=== PATIENT | male | born 1985 | race African-American/Black ===

== ENCOUNTER 2020-12-08 15:29 | Observation (INO) | payer MEDICAID ==
[~2020-12-08] VITALS: Ht 188 cm; Wt 86.3 kg
[2020-12-08] MEDS ORDERED: METOCLOPRAMIDE HCL 10 MG/2 ML VIAL. IVP ONE (16:45)
[2020-12-08] MEDS ORDERED: IV NORMAL SALINE 1000ML BAG 1,000 ML IV ONE ×2 (16:45→20:15)
[2020-12-08 17:17] LABS: BASO # 0.1 x10^3/uL (0.0-0.2); BASO % 1 % (0-3); EOS % 0 % (0-3); HEMATOCRIT 42.6 % (39.0-53.0); HEMOGLOBIN 15.1 g/dL (13.0-17.5); LYMPH # 1.7 x10^3/uL (1.0-4.8); LYMPH % 14 % (24-48); MEAN CORPUSCULAR HEMOGLOBIN 29 pg (25-35); MEAN CORPUSCULAR HGB CONC 35 g/dL (31-37); MEAN CORPUSCULAR VOLUME 82 fL (79-100); MONO # 0.7 x10^3/uL (0.0-1.1); MONO % 6 % (0-9); NEUT # 9.7 x10^3/uL (1.8-7.7); NEUT % 80 % (31-73); PLATELET COUNT 376 x10^3/uL (140-400); RED BLOOD COUNT 5.18 x10^6/uL (4.30-5.70); RED CELL DISTRIBUTION WIDTH 13.3 % (11.5-14.5); WHITE BLOOD COUNT 12.1 x10^3/uL (4.0-11.0)
--- NOTE | 2020-12-08 17:49 | PHYS DOC ---
Past Medical History Past Medical History: Diabetes-Type II (MARZENA GIPSON MANAGER CARDIOLOGY) General Adult EDM: Chief Complaint: BLOOD SUGAR PROBLEM HPI: HPI: Patient is a 35 year old male with history of diabetes type 2, who presents today complaining of hyperglycemia with nausea vomiting and weakness. Patient is very rude and not giving us any information. At some point he was yelling at the RN and I as we asked him questions related to his visit today. He has an armband from . He states he was admitted there a couple days ago and discharged after 2 days for hyperglycemia and states [facility] did nothing for him. At some point we almost called security in his room because he was yelling out loud. (MARZENA GIPSON MANAGER CARDIOLOGY) Review of Systems: Review of Systems: Constitutional: Generalized weakness. Denies fever or chills. [] Eyes: Denies change in visual acuity. [] HENT: Denies nasal congestion or sore throat. [] Respiratory: Denies cough or shortness of breath. [] Cardiovascular: Denies chest pain or edema. [] GI: Nausea and vomiting. Denies abdominal pain, nausea, vomiting, bloody stools or diarrhea. [] : Denies dysuria. [] Musculoskeletal: Denies back pain or joint pain. [] Integument: Denies rash. [] Neurologic: Denies headache, focal weakness or sensory changes. [] Endocrine: Reports hyperglycemia Psychiatric: Denies depression or anxiety. [] (MARZENA GIPSON MANAGER CARDIOLOGY) Heart Score: C/O Chest Pain: N/A Risk Factors: Risk Factors: DM, Current or recent (<one month) smoker, HTN, HLP, family history of CAD, obesity. Risk Scores: Score 0 - 3: 2.5% MACE over next 6 weeks - Discharge Home Score 4 - 6: 20.3% MACE over next 6 weeks - Admit for Clinical Observation Score 7 - 10: 72.7% MACE over next 6 weeks - Early Invasive Strategies (MARZENA GIPSON MANAGER CARDIOLOGY) Current Medications: Current Medications Medications (Trade) Dose Ordered Sig/Leslie Start Time Stop Time Status Last Admin Dose Admin Metoclopramide HCl (Reglan Vial) 10 mg 1X ONCE 12/08/20 16:45 12/08/20 16:46 UNV Sodium Chloride 1,000 ml @ 1,000 mls/hr 1X ONCE 12/08/20 16:45 12/08/20 17:44 UNV (MARZENA GIPSON MANAGER CARDIOLOGY) Physical Exam: PE: Constitutional: Well developed, well nourished, no acute distress, lethargic appearing HENT: Normocephalic, atraumatic, bilateral external ears normal, oropharynx moist, no oral exudates, nose normal. [] Eyes: PERRLA, EOMI, conjunctiva normal, no discharge. [] Neck: Normal range of motion, no tenderness, supple, no stridor. [] Cardiovascular:Heart rate regular rhythm Lungs & Thorax: Bilateral breath sounds clear to auscultation [] Abdomen: Bowel sounds normal, soft, no tenderness, no masses, no pulsatile masses. [] Skin: Warm, dry, no erythema, no rash. [] Back: No tenderness, no CVA tenderness. [] Extremities: No tenderness, no cyanosis, no clubbing, ROM intact, no edema. [] Neurologic: Alert and oriented X 3, normal motor function, normal sensory function, no focal deficits noted. Uncooperative for cranial nerve check Psychologic: Flat affect, depressed mood (MARZENA GIPSON MANAGER CARDIOLOGY) Current Patient Data: Labs: Laboratory Tests Test 12/08/20 16:42 12/08/20 17:05 Glucose (Fingerstick) 302 mg/dL (70-99) H White Blood Count 12.1 x10^3/uL (4.0-11.0) H Red Blood Count 5.18 x10^6/uL (4.30-5.70) Hemoglobin 15.1 g/dL (13.0-17.5) Hematocrit 42.6 % (39.0-53.0) Mean Corpuscular Volume 82 fL (79-100) Mean Corpuscular Hemoglobin 29 pg (25-35) Mean Corpuscular Hemoglobin Concent 35 g/dL (31-37) Red Cell Distribution Width 13.3 % (11.5-14.5) Platelet Count 376 x10^3/uL (140-400) Neutrophils (%) (Auto) 80 % (31-73) H Lymphocytes (%) (Auto) 14 % (24-48) L Monocytes (%) (Auto) 6 % (0-9) Eosinophils (%) (Auto) 0 % (0-3) Basophils (%) (Auto) 1 % (0-3) Neutrophils # (Auto) 9.7 x10^3/uL (1.8-7.7) H Lymphocytes # (Auto) 1.7 x10^3/uL (1.0-4.8) Monocytes # (Auto) 0.7 x10^3/uL (0.0-1.1) Eosinophils # (Auto) 0.0 x10^3/uL (0.0-0.7) Basophils # (Auto) 0.1 x10^3/uL (0.0-0.2) Laboratory Tests 12/08/20 17:05 (MARZENA GIPSON APRN) Vital Signs: Vital Signs Date Time Temp Pulse Resp B/P (MAP) Pulse Ox O2 Delivery O2 Flow Rate FiO2 12/08/20 20:28 106 29 118/80 (93) 99 Room Air 12/08/20 19:58 104 18 131/85 (100) 98 Room Air 12/08/20 18:58 110 28 134/80 (98) 98 Room Air 12/08/20 18:28 101 15 133/89 (104) 97 Room Air 12/08/20 17:58 104 18 129/80 (96) 95 Room Air 12/08/20 17:56 103 17 131/84 (100) 97 Room Air 12/08/20 17:07 104 19 127/89 (102) 96 Room Air 12/08/20 16:28 109 24 132/84 (100) 97 Room Air 12/08/20 16:20 98.2 109 24 132/84 95 Room Air 98.2 (AVERY LUCAS DO) EKG: EKG: [] (MARZENA GIPSON APRN) Radiology/Procedures: Radiology/Procedures: [] (MARZENA GIPSON APRN) Course & Med Decision Making: Course & Med Decision Making Pertinent Labs and Imaging studies reviewed. (See chart for details) This is a 35-year-old male patient with history of diabetes type 2 presenting today complaining of hyperglycemia, nausea, vomiting, generalized weakness, see HPI CBC with a WBC of 12.1, hemoglobin and hematocrit are normal. CMP with glucose of 246, anion gap is 9. Creatinine 1.6, BUN 42 patient denies any history of kidney disease. IV fluids ordered, insulin ordered. Spoke to Dr. Gupta who accepted patient for admission (MARZENA GIPSON APRN) Course & Med Decision Making I have personally examined this patient and I have reviewed and agree with all pertinent clinical information above including history, exam, and recommendations. I agree with plan for admission. Patient was very difficult IV access, I supervised external jugular vein cannulation by RN. Plan for admission with further IV access to be determined by the inpatient team. Avery Lucas DO (AVERY LUCAS DO) Megan Disclaimer: Megan Disclaimer: This electronic medical record was generated, in whole or in part, using a voice recognition dictation system. (MARZENA GIPSON APRN) Departure Departure Impression: Primary Impression: Acute kidney injury Additional Impressions: Dehydration Hyperglycemia Disposition: ADMITTED INPATIENT Condition: STABLE Referrals: UNKNOWN PCP NAME (PCP) MARZENA GIPSON APRN Dec 08, 2020 17:48 AVERY LUCAS DO Dec 08, 2020 21:03
[2020-12-08 18:05] LABS: CREATININE 1.6 mg/dL (0.7-1.3); GFR 59.1; POTASSIUM 3.4 mmol/L (3.5-5.1)
[2020-12-08 18:10] LABS: ALBUMIN 3.7 g/dL (3.4-5.0); ALBUMIN/GLOBULIN RATIO 0.8 (1.0-1.7); TOTAL BILIRUBIN 0.6 mg/dL (0.2-1.0); TOTAL PROTEIN 8.2 g/dL (6.4-8.2)
--- NOTE | 2020-12-08 20:05 | PDOC1 ---
History and Physical Date of Admission Date of Admission DATE: 12/08/20 TIME: 20:02 Identification/Chief Complaint Chief Complaint Hyperglycemia Source Source: Chart review, Patient History of Present Illness History of Present Illness Patient is a 35-year-old male with past medical history DM2 who presents with concern of nausea, vomiting, and elevated blood sugar over the past 2 days. Patient is very uncooperative at the time of my evaluation, is much history is obtained from chart review. He was reportedly admitted to for similar concern recently, and just discharged 2 days ago. He did report to one staff m ember that " did not do anything for me". Labs on admission showed WBC 12.7, sodium 133, BUN 42, creatinine 1.6, CBG 246, alk phos 158. At one point security was almost contacted due to patient's aggression. In the ED he received Reglan and 1 L normal saline. Will admit patient for further medical management. Past Medical History Past Medical History DM2 Past Surgical History Past Surgical History Tracheostomy, abdominal surgery Family History Family History DM2 Social History Smoke: No ALCOHOL: none Drugs: None Current Medications Current Medications Current Medications Sodium Chloride 1,000 ml @ 1,000 mls/hr 1X ONCE IV ; Start 12/08/20 at 16:45; Stop 12/08/20 at 19:35; Status DC Metoclopramide HCl (Reglan Vial) 10 mg 1X ONCE IVP ; Start 12/08/20 at 16:45; Stop 12/08/20 at 19:35; Status DC Allergies Allergies: Coded Allergies: No Known Drug Allergies (Unverified , 12/08/20) ROS Review of System He admits to abdominal pain by pointing to his stomach. Further review of history reviewed with patient but unable to obtain due to patient noncompliance. Physical Exam Physical Exam General: Alert, uncooperative, no acute distress HEENT: PERRLA, EOMI Lungs: Clear to auscultation, Normal air movement Heart: RRR, no murmurs Cardiovascular: S1, S2 Abdomen: Normal bowel sounds, Soft, No tenderness Extremities: No clubbing, No cyanosis Skin: Multiple superficial abrasions to right lower extremity. No rashes, No significant lesion Neuro: Normal tone, Sensation intact Psych/Mental Status: Blunted affect Vitals Vitals Vital Signs Date Time Temp Pulse Resp B/P (MAP) Pulse Ox O2 Delivery O2 Flow Rate FiO2 8/7/21 18:58 110 28 134/80 (98) 98 Room Air 12/08/20 16:20 98.2 98.2 Labs Labs Laboratory Tests Test 12/08/20 16:42 12/08/20 17:05 12/08/20 17:35 Glucose (Fingerstick) 302 mg/dL (70-99) White Blood Count 12.1 x10^3/uL (4.0-11.0) Red Blood Count 5.18 x10^6/uL (4.30-5.70) Hemoglobin 15.1 g/dL (13.0-17.5) Hematocrit 42.6 % (39.0-53.0) Mean Corpuscular Volume 82 fL (79-100) Mean Corpuscular Hemoglobin 29 pg (25-35) Mean Corpuscular Hemoglobin Concent 35 g/dL (31-37) Red Cell Distribution Width 13.3 % (11.5-14.5) Platelet Count 376 x10^3/uL (140-400) Neutrophils (%) (Auto) 80 % (31-73) Lymphocytes (%) (Auto) 14 % (24-48) Monocytes (%) (Auto) 6 % (0-9) Eosinophils (%) (Auto) 0 % (0-3) Basophils (%) (Auto) 1 % (0-3) Neutrophils # (Auto) 9.7 x10^3/uL (1.8-7.7) Lymphocytes # (Auto) 1.7 x10^3/uL (1.0-4.8) Monocytes # (Auto) 0.7 x10^3/uL (0.0-1.1) Eosinophils # (Auto) 0.0 x10^3/uL (0.0-0.7) Basophils # (Auto) 0.1 x10^3/uL (0.0-0.2) Sodium Level 133 mmol/L (136-145) Potassium Level 3.4 mmol/L (3.5-5.1) Chloride Level 90 mmol/L (98-107) Carbon Dioxide Level 34 mmol/L (21-32) Anion Gap 9 (6-14) Blood Urea Nitrogen 42 mg/dL (8-26) Creatinine 1.6 mg/dL (0.7-1.3) Estimated GFR (Cockcroft-Gault) 59.1 BUN/Creatinine Ratio 26 (6-20) Glucose Level 246 mg/dL (70-99) Calcium Level 10.0 mg/dL (8.5-10.1) Total Bilirubin 0.6 mg/dL (0.2-1.0) Aspartate Amino Transf (AST/SGOT) 23 U/L (15-37) Alanine Aminotransferase (ALT/SGPT) 54 U/L (16-63) Alkaline Phosphatase 158 U/L (46-116) Total Protein 8.2 g/dL (6.4-8.2) Albumin 3.7 g/dL (3.4-5.0) Albumin/Globulin Ratio 0.8 (1.0-1.7) Laboratory Tests Test 12/08/20 16:42 12/08/20 17:05 12/08/20 17:35 Glucose (Fingerstick) 302 mg/dL (70-99) White Blood Count 12.1 x10^3/uL (4.0-11.0) Red Blood Count 5.18 x10^6/uL (4.30-5.70) Hemoglobin 15.1 g/dL (13.0-17.5) Hematocrit 42.6 % (39.0-53.0) Mean Corpuscular Volume 82 fL (79-100) Mean Corpuscular Hemoglobin 29 pg (25-35) Mean Corpuscular Hemoglobin Concent 35 g/dL (31-37) Red Cell Distribution Width 13.3 % (11.5-14.5) Platelet Count 376 x10^3/uL (140-400) Neutrophils (%) (Auto) 80 % (31-73) Lymphocytes (%) (Auto) 14 % (24-48) Monocytes (%) (Auto) 6 % (0-9) Eosinophils (%) (Auto) 0 % (0-3) Basophils (%) (Auto) 1 % (0-3) Neutrophils # (Auto) 9.7 x10^3/uL (1.8-7.7) Lymphocytes # (Auto) 1.7 x10^3/uL (1.0-4.8) Monocytes # (Auto) 0.7 x10^3/uL (0.0-1.1) Eosinophils # (Auto) 0.0 x10^3/uL (0.0-0.7) Basophils # (Auto) 0.1 x10^3/uL (0.0-0.2) Sodium Level 133 mmol/L (136-145) Potassium Level 3.4 mmol/L (3.5-5.1) Chloride Level 90 mmol/L (98-107) Carbon Dioxide Level 34 mmol/L (21-32) Anion Gap 9 (6-14) Blood Urea Nitrogen 42 mg/dL (8-26) Creatinine 1.6 mg/dL (0.7-1.3) Estimated GFR (Cockcroft-Gault) 59.1 BUN/Creatinine Ratio 26 (6-20) Glucose Level 246 mg/dL (70-99) Calcium Level 10.0 mg/dL (8.5-10.1) Total Bilirubin 0.6 mg/dL (0.2-1.0) Aspartate Amino Transf (AST/SGOT) 23 U/L (15-37) Alanine Aminotransferase (ALT/SGPT) 54 U/L (16-63) Alkaline Phosphatase 158 U/L (46-116) Total Protein 8.2 g/dL (6.4-8.2) Albumin 3.7 g/dL (3.4-5.0) Albumin/Globulin Ratio 0.8 (1.0-1.7) VTE Prophylaxis Ordered VTE Prophylaxis Devices: Yes VTE Pharmacological Prophylaxi: No Assessment/Plan Assessment/Plan LUISA due to vasomotor nephropathy Dehydration DM2 with hyperglycemia Leukocytosis Plan: I will admit patient and provide IV fluids Basal/prandial insulin We will resume home medications I imagine patient will be able to discharge tomorrow if labs improved significantly FEN - Cardiac diet PPX - SCDs FULL CODE Dispo - OBS for above Justifications for Admission Other Justification ROCKY MEHTA MD Dec 08, 2020 20:04
[2020-12-08] MEDS ORDERED: ACETAMINOPHEN 325 MG TABLET. PO PRN ×2 (20:15→20:30)
[2020-12-08] MEDS ORDERED: DEXTROSE 50% 25 GM / 50ML DISP.SYRIN. IV PRN ×2 (20:15→20:30)
[2020-12-08] MEDS ORDERED: ONDANSETRON PF 4 MG/2 ML VIAL. IVP PRN ×2 (20:15→20:30)
[2020-12-08] MEDS ORDERED: MORPHINE SULFATE 2 MG/ML INJ. IVP PRN (20:15)
[2020-12-08] MEDS ORDERED: HYDROcodone/APAP 5/325MG 1 TAB TABLET PO PRN (20:30)
[2020-12-08] MEDS ORDERED: IV DEXTROSE 5% 250 ML BAG. IV PRN ×2 (20:30→23:30)
[2020-12-08] MEDS ORDERED: PROCHLORPERAZINE 10 MG/2 ML VIAL. IVP PRN (20:30)
[2020-12-08] MEDS ORDERED: MAGNESIUM HYDROXIDE 2,400 MG/30 ML ORAL.SUSP. PO PRN (20:30)
[2020-12-08] MEDS ORDERED: MAG HYDROX/ALUMINUM HYD/SIMETH 30 ML ORAL.SUSP PO PRN (20:30)
[2020-12-08] MEDS ORDERED: ZOLPIDEM 5 MG TABLET. PO PRN (20:30)
[2020-12-08] MEDS ORDERED: IV NORMAL SALINE 1000ML BAG 1,000 ML IV PRN (20:30)
[2020-12-08] MEDS ORDERED: CALCIUM CARBONATE 500 MG TAB.CHEW PO PRN (20:30)
[2020-12-08] MEDS ORDERED: FAMOTIDINE 20 MG TABLET. PO PRN (20:45)
[2020-12-08] MEDS ORDERED: METOCLOPRAMIDE HCL 10 MG/2 ML VIAL. IVP PRN (20:45)
[2020-12-08] MEDS ORDERED: LIDO:MAALOX 1:1 20 ML SINGLE DOSE. SWSW PRN (20:45)
[2020-12-08] MEDS ORDERED: MORPHINE SULFATE 4 MG/ML INJ. IVP PRN (20:45)
[2020-12-08] MEDS ORDERED: PANTOPRAZOLE 40 MG TABLET.DR. PO PRN (20:45)
[2020-12-08] MEDS ORDERED: INSULIN GLARGINE SYRINGE. SQ SCH (21:00)
[2020-12-08 21:20] VITALS: BP 117/95
--- NOTE | 2020-12-08 22:37 | NUR ---
patient admitted from ED ,arrived to room 412 at 2125. patient will answer to questions appropriately. Denies pain , He stated he took lantus 30 units at 2pm , ,His blood sugar upon arrival per Cap[facility] was 112. Refused lantus 20 units order at ED. Noticed his body jerking on and off while talking to this RN, he said he is not having seizure activity. No muscle stiffness noted while his whole body is jerking. VS taken and WNL. Dr Gupta Notified about this body jerking activities .
[2020-12-08 23:00] VITALS: BP 91/54
[2020-12-09 02:43] VITALS: BP 117/95
[2020-12-09 04:06] LABS: BILIRUBIN,URINE SMALL (NEG); CLARITY,URINE CLEAR; COLOR,URINE AMBER; NITRITE,URINE NEGATIVE (NEG); PH,URINE 5.5 (<5.0-8.0); PROTEIN,URINE 100 mg/dL (NEG-TRACE); UROBILINOGEN,URINE 0.2 mg/dL (0.2 mg/dL)
[2020-12-09 04:12] LABS: BARBITURATES NEG (NEG); BENZODIAZEPINES NEG (NEG); CANNABINOIDS NEG (NEG); COCAINE NEG (NEG); METHADONE NEG (NEG); OPIATES NEG (NEG); PHENCYCLIDINE NEG (NEG)
[2020-12-09 04:21] LABS: AMPHETAMINE/METHAMPHETAMINE NEG (NEG)
[2020-12-09 04:42] LABS: BACTERIA,URINE FEW /HPF (0-FEW); RBC,URINE 0 /HPF (0-2)
[2020-12-09 04:43] LABS: HYALINE CASTS, URINE FEW /HPF
[2020-12-09 07:00] VITALS: BP 137/92
[2020-12-09] MEDS: INSULIN LISPRO 300 UNITS/3 ML VIAL. SQ SCH ×3 (08:00→18:12)
[2020-12-09] MEDS ORDERED: INSULIN LISPRO 300 UNITS/3 ML VIAL. SQ SCH (08:00)
[2020-12-09 08:04] LABS: BASO % 0 % (0-3); EOS # 0.1 x10^3/uL (0.0-0.7); EOS % 1 % (0-3); HEMATOCRIT 36.5 % (39.0-53.0); LYMPH # 2.3 x10^3/uL (1.0-4.8); LYMPH % 24 % (24-48); MEAN CORPUSCULAR HEMOGLOBIN 30 pg (25-35); MEAN CORPUSCULAR HGB CONC 36 g/dL (31-37); MEAN CORPUSCULAR VOLUME 83 fL (79-100); MONO # 0.6 x10^3/uL (0.0-1.1); MONO % 6 % (0-9); NEUT # 6.6 x10^3/uL (1.8-7.7); NEUT % 68 % (31-73); PLATELET COUNT 305 x10^3/uL (140-400); RED BLOOD COUNT 4.38 x10^6/uL (4.30-5.70); RED CELL DISTRIBUTION WIDTH 13.1 % (11.5-14.5); WHITE BLOOD COUNT 9.6 x10^3/uL (4.0-11.0)
[2020-12-09 08:11] LABS: CALCIUM 8.8 mg/dL (8.5-10.1); CREATININE 1.2 mg/dL (0.7-1.3); GFR 82.4; POTASSIUM 3.3 mmol/L (3.5-5.1)
[2020-12-09] MEDS ORDERED: PANTOPRAZOLE IV PUSH 40 MG VIAL. IVP SCH (09:00)
--- NOTE | 2020-12-09 10:53 | PDOC ---
PROGRESS NOTES Date of Service: DATE: 12/09/20 TIME: 10:53 Chief Complaint Chief Complaint VTE Prophylaxis Ordered VTE Prophylaxis Devices: Yes VTE Pharmacological Prophylaxi: No Assessment/Plan LUISA due to vasomotor nephropathy Dehydration DM2 with hyperglycemia Leukocytosis HYPOKALEMIA METABOLIC contraction alkalosis Vomiting Plan: admit patient and provide IV fluids Basal/prandial insulin resume home medications discharge tomorrow if labs improved significantly FEN - Cardiac diet PPX - SCDs FULL CODE Dispo - OBS for above REPLETE K continue iv reglan 1/2 NS AT 125 CC / HR remain in hospital for IV FLUID SUPPORT ACUTE ABD SERIES LIPASE D/W RN Justifications for Admission Justifications for Admission Other Justification History of Present Illness History of Present Illness Identification/Chief Complaint Chief Complaint Hyperglycemia Source Source: Chart review, Patient History of Present Illness History of Present Illness Patient is a 35-year-old male with past medical history DM2 who presents with concern of nausea, vomiting, and elevated blood sugar over the past 2 days. Patient is very uncooperative at the time of my evaluation, is much history is obtained from chart review. He was reportedly admitted to for similar concern recently, and just discharged 2 days ago. He did report to one staff member that " did not do anything for me". Labs on admission showed WBC 12.7, sodium 133, BUN 42, creatinine 1.6, CBG 246, alk phos 158. At one point security was almost contacted due to patient's aggression. In the ED he received Reglan and 1 L normal saline. Will admit patient for further medical management. Past Medical History Past Medical History DM2 Past Surgical History Past Surgical History Tracheostomy, abdominal surgery Family History Family History DM2 Social History Smoke: No ALCOHOL: none Drugs: None Current Medications Current Medications Current Medications Sodium Chloride 1,000 ml @ 1,000 mls/hr 1X ONCE IV ; Start 12/08/20 at 16:45; Stop 12/08/20 at 19:35; Status DC Metoclopramide HCl (Reglan Vial) 10 mg 1X ONCE IVP ; Start 12/08/20 at 16:45; Stop 12/08/20 at 19:35; Status DC Allergies Allergies: Coded Allergies: No Known Drug Allergies (Unverified , 12/08/20) ROS Review of System He admits to abdominal pain by pointing to his stomach. Further review of history reviewed with patient but unable to obtain due to patient noncompliance. Vitals Vitals Vital Signs Date Time Temp Pulse Resp B/P (MAP) Pulse Ox O2 Delivery O2 Flow Rate FiO2 12/09/20 07:00 97.7 97 18 137/92 (107) 96 Room Air 97.7 Physical Exam Physical Exam Physical Exam Physical Exam General: Alert, uncooperative, no acute distress HEENT: PERRLA, EOMI Lungs: Clear to auscultation, Normal air movement Heart: RRR, no murmurs Cardiovascular: S1, S2 Abdomen: Normal bowel sounds, Soft, No tenderness Extremities: No clubbing, No cyanosis Skin: Multiple superficial abrasions to right lower extremity. No rashes, No significant lesion Neuro: Normal tone, Sensation intact Psych/Mental Status: Blunted affect General: Alert, Oriented X3, Cooperative, No acute distress Heart: Regular rate Lungs: Clear Abdomen: Normal bowel sounds, Soft, No tenderness Extremities: No clubbing, No cyanosis, No edema Labs LABS Laboratory Tests Test 12/08/20 16:42 12/08/20 17:05 12/08/20 17:35 12/08/20 21:32 Glucose (Fingerstick) 302 mg/dL (70-99) 112 mg/dL (70-99) White Blood Count 12.1 x10^3/uL (4.0-11.0) Red Blood Count 5.18 x10^6/uL (4.30-5.70) Hemoglobin 15.1 g/dL (13.0-17.5) Hematocrit 42.6 % (39.0-53.0) Mean Corpuscular Volume 82 fL (79-100) Mean Corpuscular Hemoglobin 29 pg (25-35) Mean Corpuscular Hemoglobin Concent 35 g/dL (31-37) Red Cell Distribution Width 13.3 % (11.5-14.5) Platelet Count 376 x10^3/uL (140-400) Neutrophils (%) (Auto) 80 % (31-73) Lymphocytes (%) (Auto) 14 % (24-48) Monocytes (%) (Auto) 6 % (0-9) Eosinophils (%) (Auto) 0 % (0-3) Basophils (%) (Auto) 1 % (0-3) Neutrophils # (Auto) 9.7 x10^3/uL (1.8-7.7) Lymphocytes # (Auto) 1.7 x10^3/uL (1.0-4.8) Monocytes # (Auto) 0.7 x10^3/uL (0.0-1.1) Eosinophils # (Auto) 0.0 x10^3/uL (0.0-0.7) Basophils # (Auto) 0.1 x10^3/uL (0.0-0.2) Sodium Level 133 mmol/L (136-145) Potassium Level 3.4 mmol/L (3.5-5.1) Chloride Level 90 mmol/L (98-107) Carbon Dioxide Level 34 mmol/L (21-32) Anion Gap 9 (6-14) Blood Urea Nitrogen 42 mg/dL (8-26) Creatinine 1.6 mg/dL (0.7-1.3) Estimated GFR (Cockcroft-Gault) 59.1 BUN/Creatinine Ratio 26 (6-20) Glucose Level 246 mg/dL (70-99) Calcium Level 10.0 mg/dL (8.5-10.1) Total Bilirubin 0.6 mg/dL (0.2-1.0) Aspartate Amino Transf (AST/SGOT) 23 U/L (15-37) Alanine Aminotransferase (ALT/SGPT) 54 U/L (16-63) Alkaline Phosphatase 158 U/L (46-116) Total Protein 8.2 g/dL (6.4-8.2) Albumin 3.7 g/dL (3.4-5.0) Albumin/Globulin Ratio 0.8 (1.0-1.7) Test 12/09/20 03:50 12/09/20 07:10 12/09/20 07:22 Urine Collection Type Unknown Urine Color Diamond Urine Clarity Clear Urine pH 5.5 (<5.0-8.0) Urine Specific [place] >=1.030 (1.000-1.030) Urine Protein 100 mg/dL (NEG-TRACE) Urine Glucose (UA) 500 mg/dL (NEG) Urine Ketones (Stick) Trace mg/dL (NEG) Urine Blood Negative (NEG) Urine Nitrite Negative (NEG) Urine Bilirubin Small (NEG) Urine Urobilinogen Dipstick 0.2 mg/dL (0.2 mg/dL) Urine Leukocyte Esterase Trace (NEG) Urine RBC 0 /HPF (0-2) Urine WBC 1-4 /HPF (0-4) Urine Squamous Epithelial Cells Few /LPF Urine Bacteria Few /HPF (0-FEW) Urine Hyaline Casts Few /HPF Urine Mucus Mod /LPF Urine Opiates Screen Neg (NEG) Urine Methadone Screen Neg (NEG) Urine Barbiturates Neg (NEG) Urine Phencyclidine Screen Neg (NEG) Urine Amphetamine/Methamphetamine Neg (NEG) Urine Benzodiazepines Screen Neg (NEG) Urine Cocaine Screen Neg (NEG) Urine Cannabinoids Screen Neg (NEG) Urine Ethyl Alcohol Neg (NEG) White Blood Count 9.6 x10^3/uL (4.0-11.0) Red Blood Count 4.38 x10^6/uL (4.30-5.70) Hemoglobin 13.0 g/dL (13.0-17.5) Hematocrit 36.5 % (39.0-53.0) Mean Corpuscular Volume 83 fL (79-100) Mean Corpuscular Hemoglobin 30 pg (25-35) Mean Corpuscular Hemoglobin Concent 36 g/dL (31-37) Red Cell Distribution Width 13.1 % (11.5-14.5) Platelet Count 305 x10^3/uL (140-400) Neutrophils (%) (Auto) 68 % (31-73) Lymphocytes (%) (Auto) 24 % (24-48) Monocytes (%) (Auto) 6 % (0-9) Eosinophils (%) (Auto) 1 % (0-3) Basophils (%) (Auto) 0 % (0-3) Neutrophils # (Auto) 6.6 x10^3/uL (1.8-7.7) Lymphocytes # (Auto) 2.3 x10^3/uL (1.0-4.8) Monocytes # (Auto) 0.6 x10^3/uL (0.0-1.1) Eosinophils # (Auto) 0.1 x10^3/uL (0.0-0.7) Basophils # (Auto) 0.0 x10^3/uL (0.0-0.2) Sodium Level 137 mmol/L (136-145) Potassium Level 3.3 mmol/L (3.5-5.1) Chloride Level 95 mmol/L (98-107) Carbon Dioxide Level 37 mmol/L (21-32) Anion Gap 5 (6-14) Blood Urea Nitrogen 29 mg/dL (8-26) Creatinine 1.2 mg/dL (0.7-1.3) Estimated GFR (Cockcroft-Gault) 82.4 Glucose Level 69 mg/dL (70-99) Calcium Level 8.8 mg/dL (8.5-10.1) Glucose (Fingerstick) 77 mg/dL (70-99) Assessment and Plan Assessmemt and Plan Problems Medical Problems: (1) Acute kidney injury Status: Acute (2) Hyperglycemia Status: Acute Comment Review of Relevant I have reviewed the following items jo (where applicable) has been applied. Labs Laboratory Tests Test 12/08/20 16:42 12/08/20 17:05 12/08/20 17:35 12/08/20 21:32 Glucose (Fingerstick) 302 mg/dL (70-99) 112 mg/dL (70-99) White Blood Count 12.1 x10^3/uL (4.0-11.0) Red Blood Count 5.18 x10^6/uL (4.30-5.70) Hemoglobin 15.1 g/dL (13.0-17.5) Hematocrit 42.6 % (39.0-53.0) Mean Corpuscular Volume 82 fL (79-100) Mean Corpuscular Hemoglobin 29 pg (25-35) Mean Corpuscular Hemoglobin Concent 35 g/dL (31-37) Red Cell Distribution Width 13.3 % (11.5-14.5) Platelet Count 376 x10^3/uL (140-400) Neutrophils (%) (Auto) 80 % (31-73) Lymphocytes (%) (Auto) 14 % (24-48) Monocytes (%) (Auto) 6 % (0-9) Eosinophils (%) (Auto) 0 % (0-3) Basophils (%) (Auto) 1 % (0-3) Neutrophils # (Auto) 9.7 x10^3/uL (1.8-7.7) Lymphocytes # (Auto) 1.7 x10^3/uL (1.0-4.8) Monocytes # (Auto) 0.7 x10^3/uL (0.0-1.1) Eosinophils # (Auto) 0.0 x10^3/uL (0.0-0.7) Basophils # (Auto) 0.1 x10^3/uL (0.0-0.2) Sodium Level 133 mmol/L (136-145) Potassium Level 3.4 mmol/L (3.5-5.1) Chloride Level 90 mmol/L (98-107) Carbon Dioxide Level 34 mmol/L (21-32) Anion Gap 9 (6-14) Blood Urea Nitrogen 42 mg/dL (8-26) Creatinine 1.6 mg/dL (0.7-1.3) Estimated GFR (Cockcroft-Gault) 59.1 BUN/Creatinine Ratio 26 (6-20) Glucose Level 246 mg/dL (70-99) Calcium Level 10.0 mg/dL (8.5-10.1) Total Bilirubin 0.6 mg/dL (0.2-1.0) Aspartate Amino Transf (AST/SGOT) 23 U/L (15-37) Alanine Aminotransferase (ALT/SGPT) 54 U/L (16-63) Alkaline Phosphatase 158 U/L (46-116) Total Protein 8.2 g/dL (6.4-8.2) Albumin 3.7 g/dL (3.4-5.0) Albumin/Globulin Ratio 0.8 (1.0-1.7) Test 12/09/20 03:50 12/09/20 07:10 12/09/20 07:22 Urine Collection Type Unknown Urine Color Diamond Urine Clarity Clear Urine pH 5.5 (<5.0-8.0) Urine Specific [place] >=1.030 (1.000-1.030) Urine Protein 100 mg/dL (NEG-TRACE) Urine Glucose (UA) 500 mg/dL (NEG) Urine Ketones (Stick) Trace mg/dL (NEG) Urine Blood Negative (NEG) Urine Nitrite Negative (NEG) Urine Bilirubin Small (NEG) Urine Urobilinogen Dipstick 0.2 mg/dL (0.2 mg/dL) Urine Leukocyte Esterase Trace (NEG) Urine RBC 0 /HPF (0-2) Urine WBC 1-4 /HPF (0-4) Urine Squamous Epithelial Cells Few /LPF Urine Bacteria Few /HPF (0-FEW) Urine Hyaline Casts Few /HPF Urine Mucus Mod /LPF Urine Opiates Screen Neg (NEG) Urine Methadone Screen Neg (NEG) Urine Barbiturates Neg (NEG) Urine Phencyclidine Screen Neg (NEG) Urine Amphetamine/Methamphetamine Neg (NEG) Urine Benzodiazepines Screen Neg (NEG) Urine Cocaine Screen Neg (NEG) Urine Cannabinoids Screen Neg (NEG) Urine Ethyl Alcohol Neg (NEG) White Blood Count 9.6 x10^3/uL (4.0-11.0) Red Blood Count 4.38 x10^6/uL (4.30-5.70) Hemoglobin 13.0 g/dL (13.0-17.5) Hematocrit 36.5 % (39.0-53.0) Mean Corpuscular Volume 83 fL (79-100) Mean Corpuscular Hemoglobin 30 pg (25-35) Mean Corpuscular Hemoglobin Concent 36 g/dL (31-37) Red Cell Distribution Width 13.1 % (11.5-14.5) Platelet Count 305 x10^3/uL (140-400) Neutrophils (%) (Auto) 68 % (31-73) Lymphocytes (%) (Auto) 24 % (24-48) Monocytes (%) (Auto) 6 % (0-9) Eosinophils (%) (Auto) 1 % (0-3) Basophils (%) (Auto) 0 % (0-3) Neutrophils # (Auto) 6.6 x10^3/uL (1.8-7.7) Lymphocytes # (Auto) 2.3 x10^3/uL (1.0-4.8) Monocytes # (Auto) 0.6 x10^3/uL (0.0-1.1) Eosinophils # (Auto) 0.1 x10^3/uL (0.0-0.7) Basophils # (Auto) 0.0 x10^3/uL (0.0-0.2) Sodium Level 137 mmol/L (136-145) Potassium Level 3.3 mmol/L (3.5-5.1) Chloride Level 95 mmol/L (98-107) Carbon Dioxide Level 37 mmol/L (21-32) Anion Gap 5 (6-14) Blood Urea Nitrogen 29 mg/dL (8-26) Creatinine 1.2 mg/dL (0.7-1.3) Estimated GFR (Cockcroft-Gault) 82.4 Glucose Level 69 mg/dL (70-99) Calcium Level 8.8 mg/dL (8.5-10.1) Glucose (Fingerstick) 77 mg/dL (70-99) Laboratory Tests Test 12/08/20 16:42 12/08/20 17:05 12/08/20 17:35 12/08/20 21:32 Glucose (Fingerstick) 302 mg/dL (70-99) 112 mg/dL (70-99) White Blood Count 12.1 x10^3/uL (4.0-11.0) Red Blood Count 5.18 x10^6/uL (4.30-5.70) Hemoglobin 15.1 g/dL (13.0-17.5) Hematocrit 42.6 % (39.0-53.0) Mean Corpuscular Volume 82 fL (79-100) Mean Corpuscular Hemoglobin 29 pg (25-35) Mean Corpuscular Hemoglobin Concent 35 g/dL (31-37) Red Cell Distribution Width 13.3 % (11.5-14.5) Platelet Count 376 x10^3/uL (140-400) Neutrophils (%) (Auto) 80 % (31-73) Lymphocytes (%) (Auto) 14 % (24-48) Monocytes (%) (Auto) 6 % (0-9) Eosinophils (%) (Auto) 0 % (0-3) Basophils (%) (Auto) 1 % (0-3) Neutrophils # (Auto) 9.7 x10^3/uL (1.8-7.7) Lymphocytes # (Auto) 1.7 x10^3/uL (1.0-4.8) Monocytes # (Auto) 0.7 x10^3/uL (0.0-1.1) Eosinophils # (Auto) 0.0 x10^3/uL (0.0-0.7) Basophils # (Auto) 0.1 x10^3/uL (0.0-0.2) Sodium Level 133 mmol/L (136-145) Potassium Level 3.4 mmol/L (3.5-5.1) Chloride Level 90 mmol/L (98-107) Carbon Dioxide Level 34 mmol/L (21-32) Anion Gap 9 (6-14) Blood Urea Nitrogen 42 mg/dL (8-26) Creatinine 1.6 mg/dL (0.7-1.3) Estimated GFR (Cockcroft-Gault) 59.1 BUN/Creatinine Ratio 26 (6-20) Glucose Level 246 mg/dL (70-99) Calcium Level 10.0 mg/dL (8.5-10.1) Total Bilirubin 0.6 mg/dL (0.2-1.0) Aspartate Amino Transf (AST/SGOT) 23 U/L (15-37) Alanine Aminotransferase (ALT/SGPT) 54 U/L (16-63) Alkaline Phosphatase 158 U/L (46-116) Total Protein 8.2 g/dL (6.4-8.2) Albumin 3.7 g/dL (3.4-5.0) Albumin/Globulin Ratio 0.8 (1.0-1.7) Test 12/09/20 03:50 12/09/20 07:10 12/09/20 07:22 Urine Collection Type Unknown Urine Color Diamond Urine Clarity Clear Urine pH 5.5 (<5.0-8.0) Urine Specific [place] >=1.030 (1.000-1.030) Urine Protein 100 mg/dL (NEG-TRACE) Urine Glucose (UA) 500 mg/dL (NEG) Urine Ketones (Stick) Trace mg/dL (NEG) Urine Blood Negative (NEG) Urine Nitrite Negative (NEG) Urine Bilirubin Small (NEG) Urine Urobilinogen Dipstick 0.2 mg/dL (0.2 mg/dL) Urine Leukocyte Esterase Trace (NEG) Urine RBC 0 /HPF (0-2) Urine WBC 1-4 /HPF (0-4) Urine Squamous Epithelial Cells Few /LPF Urine Bacteria Few /HPF (0-FEW) Urine Hyaline Casts Few /HPF Urine Mucus Mod /LPF Urine Opiates Screen Neg (NEG) Urine Methadone Screen Neg (NEG) Urine Barbiturates Neg (NEG) Urine Phencyclidine Screen Neg (NEG) Urine Amphetamine/Methamphetamine Neg (NEG) Urine Benzodiazepines Screen Neg (NEG) Urine Cocaine Screen Neg (NEG) Urine Cannabinoids Screen Neg (NEG) Urine Ethyl Alcohol Neg (NEG) White Blood Count 9.6 x10^3/uL (4.0-11.0) Red Blood Count 4.38 x10^6/uL (4.30-5.70) Hemoglobin 13.0 g/dL (13.0-17.5) Hematocrit 36.5 % (39.0-53.0) Mean Corpuscular Volume 83 fL (79-100) Mean Corpuscular Hemoglobin 30 pg (25-35) Mean Corpuscular Hemoglobin Concent 36 g/dL (31-37) Red Cell Distribution Width 13.1 % (11.5-14.5) Platelet Count 305 x10^3/uL (140-400) Neutrophils (%) (Auto) 68 % (31-73) Lymphocytes (%) (Auto) 24 % (24-48) Monocytes (%) (Auto) 6 % (0-9) Eosinophils (%) (Auto) 1 % (0-3) Basophils (%) (Auto) 0 % (0-3) Neutrophils # (Auto) 6.6 x10^3/uL (1.8-7.7) Lymphocytes # (Auto) 2.3 x10^3/uL (1.0-4.8) Monocytes # (Auto) 0.6 x10^3/uL (0.0-1.1) Eosinophils # (Auto) 0.1 x10^3/uL (0.0-0.7) Basophils # (Auto) 0.0 x10^3/uL (0.0-0.2) Sodium Level 137 mmol/L (136-145) Potassium Level 3.3 mmol/L (3.5-5.1) Chloride Level 95 mmol/L (98-107) Carbon Dioxide Level 37 mmol/L (21-32) Anion Gap 5 (6-14) Blood Urea Nitrogen 29 mg/dL (8-26) Creatinine 1.2 mg/dL (0.7-1.3) Estimated GFR (Cockcroft-Gault) 82.4 Glucose Level 69 mg/dL (70-99) Calcium Level 8.8 mg/dL (8.5-10.1) Glucose (Fingerstick) 77 mg/dL (70-99) Medications Current Medications Sodium Chloride 1,000 ml @ 1,000 mls/hr 1X ONCE IV Last administered on 12/08/20at 20:16; Start 12/08/20 at 16:45; Stop 12/08/20 at 19:35; Status DC Metoclopramide HCl (Reglan Vial) 10 mg 1X ONCE IVP Last administered on 12/08/20at 20:16; Start 12/08/20 at 16:45; Stop 12/08/20 at 19:35; Status DC Ondansetron HCl (Zofran) 4 mg PRN Q8HRS PRN IVP NAUSEA/VOMITING; Start 12/08/20 at 20:15; Stop 12/09/20 at 20:14 Morphine Sulfate (Morphine Sulfate) 2 mg PRN Q2HR PRN IVP PAIN; Start 12/08/20 at 20:15; Stop 12/09/20 at 20:14 Acetaminophen (Tylenol) 650 mg PRN Q4HRS PRN PO FEVER > 100.3'F; Start 12/08/20 at 20:15; Stop 12/09/20 at 20:14 Insulin Human Lispro (HumaLOG) 0-5 UNITS TIDWMEALS SQ ; Start 12/09/20 at 08:00 Dextrose (Dextrose 50%-Water Syringe) 12.5 gm PRN Q15MIN PRN IV SEE COMMENTS; Start 12/08/20 at 20:15; Stop 12/08/20 at 20:40; Status DC Sodium Chloride 1,000 ml @ 100 mls/hr 1X ONCE IV Last administered on 12/08/20at 21:33; Start 12/08/20 at 20:15; Stop 12/09/20 at 06:14; Status DC Insulin Glargine (Lantus Syringe) 20 unit QHS SQ ; Start 12/08/20 at 21:00; Stop 12/08/20 at 23:36; Status DC Insulin Human Lispro (HumaLOG) 6 units TIDWMEALS SQ ; Start 12/09/20 at 08:00; Stop 12/08/20 at 23:38; Status DC Dextrose (Dextrose 50%-Water Syringe) 12.5 gm PRN Q15MIN PRN IV SEE COMMENTS; Start 12/08/20 at 20:30 Dextrose (Iv Dextrose 5%) 250 ml PRN Q15MIN PRN IV SEE COMMENTS; Start 12/08/20 at 20:30; Status UNV Sodium Chloride 1,000 ml @ 100 mls/hr CONT PRN IV .; Start 12/08/20 at 20:30 Ondansetron HCl (Zofran) 4 mg PRN Q6HRS PRN IVP NAUSEA/VOMITING; Start 12/08/20 at 20:30 Prochlorperazine Edisylate (Compazine) 10 mg PRN Q6HRS PRN IVP NAUSEA/VOMITING; Start 12/08/20 at 20:30 Al Hydroxide/Mg Hydroxide (Mylanta Plus Xs) 30 ml PRN Q3HRS PRN PO HEARTBURN / GAS; Start 12/08/20 at 20:30 Calcium Carbonate/ Glycine (Tums) 500 mg PRN Q3HRS PRN PO UPSET STOMACH; Start 12/08/20 at 20:30 Zolpidem Tartrate (Ambien) 5 mg PRN QHS PRN PO INSOMNIA, MAY REPEAT IN 1HR; Start 12/08/20 at 20:30 Acetaminophen/ Hydrocodone Bitart (Lortab 5/325) 1 tab PRN Q4HRS PRN PO MILD PAIN 1-3; Start 12/08/20 at 20:30 Acetaminophen (Tylenol) 650 mg PRN Q6HRS PRN PO Headaches, Temp > 101.5F; Start 12/08/20 at 20:30 Magnesium Hydroxide (Milk Of Magnesia) 2,400 mg PRN Q12HR PRN PO CONSTIPATION; Start 12/08/20 at 20:30 Pantoprazole Sodium (Protonix) 40 mg PRN DAILY PRN PO HEARTBURN / GAS; Start 12/08/20 at 20:45 Multi-Ingredient Mouthwash/Gargle (Gi Cocktail) 20 ml 1X PRN SWSW INDIGESTION; Start 12/08/20 at 20:45 Famotidine (Pepcid) 20 mg PRN BID PRN PO HEARTBURN / GAS; Start 12/08/20 at 20:45; Status UNV Pantoprazole Sodium (PROTONIX VIAL for IV PUSH) 40 mg DAILY IVP Last administered on 12/09/20at 09:26; Start 12/09/20 at 09:00 Metoclopramide HCl (Reglan Vial) 10 mg PRN Q6HRS PRN IVP NAUSEA/VOMITING; Start 12/08/20 at 20:45 Morphine Sulfate (Morphine Sulfate) 4 mg PRN Q4HRS PRN IVP BREAKTHROUGH PAIN; Start 12/08/20 at 20:45 Dextrose (Iv Dextrose 5%) 250 ml PRN Q15MIN PRN IV SEE COMMENTS; Start 12/08/20 at 23:30; Status UNV Lorazepam (Ativan Inj) 2 mg PRN Q10MIN PRN IVP SEE COMMENTS; Start 12/08/20 at 23:30 Lorazepam (Ativan) 1 mg PRN Q6HRS PRN PO ANXIETY / AGITATION; Start 12/08/20 at 23:30 Insulin Glargine (Lantus Syringe) 10 unit QHS SQ ; Start 12/09/20 at 21:00 Vitals/I & O Vital Sign - Last 24 Hours 12/08/20 12/08/20 12/08/20 12/08/20 16:20 16:28 17:07 17:56 Temp 98.2 98.2 Pulse 109 109 104 103 Resp 24 24 19 17 B/P (MAP) 132/84 132/84 (100) 127/89 (102) 131/84 (100) Pulse Ox 95 97 96 97 O2 Delivery Room Air Room Air Room Air Room Air 12/08/20 12/08/20 12/08/20 12/08/20 17:58 18:28 18:58 19:58 Pulse 104 101 110 104 Resp 18 15 28 18 B/P (MAP) 129/80 (96) 133/89 (104) 134/80 (98) 131/85 (100) Pulse Ox 95 97 98 98 O2 Delivery Room Air Room Air Room Air Room Air 12/08/20 12/08/20 12/08/20 12/08/20 20:28 20:58 21:20 23:00 Temp 98.0 98.1 98.0 98.1 Pulse 106 98 107 95 Resp 29 14 18 18 B/P (MAP) 118/80 (93) 107/68 (81) 117/95 (102) 91/54 (66) Pulse Ox 99 94 97 95 O2 Delivery Room Air Room Air Room Air Room Air 12/09/20 12/09/20 02:43 07:00 Temp 98.0 97.7 98.0 97.7 Pulse 92 97 Resp 18 18 B/P (MAP) 117/95 (102) 137/92 (107) Pulse Ox 95 96 O2 Delivery Room Air Room Air Intake and Output 12/08/20 12/08/20 12/09/20 15:00 23:00 07:00 Intake Total 120 ml Output Total 800 ml Balance -680 ml Justicifation of Admission Dx: Justifications for Admission: Justification of Admission Dx: Yes CHF: Hemodynamic Instability Chronic Renal Failure: Intravenous Infusions SCOTTY MCKINNEY MD Dec 09, 2020 10:53
[2020-12-09 11:00] VITALS: BP 101/64
--- NOTE | 2020-12-09 13:32 | NUR ---
patient did not eat lunch, noon humalog was not given.
[2020-12-09] MEDS ORDERED: IV NORMAL SALINE 1000ML BAG 1,000 ML IV SCH (14:00)
[2020-12-09] MEDS ORDERED: POTASSIUM CHLORIDE 20 MEQ TABLET.ER. PO ONE (14:30)
[2020-12-09 15:00] VITALS: BP 129/86
--- NOTE | 2020-12-09 16:57 | RAD ---
Exam Date: 12/09/2020 4:19 PM XR ABDOMEN COMP ACUTE Indication: Reason: vomiting / Spl. Instructions: / History: . FINDINGS/ IMPRESSION: CHEST: The cardiac silhouette, pulmonary vasculature and lung mcdonald are within normal limits. Calcified gr anuloma in the left upper lobe is noted. The osseous structures are intact. ABDOMEN AND PELVIS: There is a non-dilated, non-obstructed bowel gas pattern. Air and fecal matter is seen within the co kurtis. Degenerative changes are seen in the spine and pelvis. Electronically signed by: Yunior Lerner MD (12/09/2020 4:55 PM) [facility]
[2020-12-09] MEDS: IV 1/2 NORMAL SALINE 1,000 ML IV SCH (17:52)
[2020-12-09 19:00] VITALS: BP 116/73
[2020-12-09] MEDS: INSULIN GLARGINE SYRINGE. SQ SCH (20:58)
[2020-12-09 23:00] VITALS: BP 128/79
[2020-12-10 03:00] VITALS: BP 126/69
[2020-12-10] MEDS: IV 1/2 NORMAL SALINE 1,000 ML IV SCH ×3 (03:00→17:31)
[2020-12-10 05:28] LABS: CALCIUM 8.6 mg/dL (8.5-10.1); CREATININE 0.8 mg/dL (0.7-1.3); GFR 131.6
[2020-12-10 05:35] LABS: POTASSIUM 2.9 mmol/L (3.5-5.1)
[2020-12-10] MEDS: POTASSIUM CHLORIDE 20 MEQ TABLET.ER. PO ONE ×2 (05:45→06:03)
[2020-12-10] MEDS: PANTOPRAZOLE 40 MG TABLET.DR. PO SCH ×2 (06:03→09:26)
[2020-12-10 06:09] VITALS: BP 139/84
[2020-12-10] MEDS: POTASSIUM CHLORIDE 10MEQ 100 ML IV SCH ×4 (06:28→10:19)
[2020-12-10] MEDS: POTASSIUM CHLORIDE 20 MEQ TABLET.ER. PO SCH (07:25)
[2020-12-10] MEDS: INSULIN LISPRO 300 UNITS/3 ML VIAL. SQ SCH ×3 (08:00→17:33)
--- NOTE | 2020-12-10 08:20 | NUR ---
Patient refusing blood sugar check, morning meds, and assessment. Will attempt again
[2020-12-10 11:05] VITALS: BP 121/83
--- NOTE | 2020-12-10 11:27 | NUR ---
SW following. Discussed with RN, pt from home alone, room air, ada diet. RN advised no SW needs at this time. SW will continue to follow.
[2020-12-10 15:00] VITALS: BP 101/60
--- NOTE | 2020-12-10 15:59 | PDOC3 ---
Discharge Summary Visit Information Date of Admission: Dec 08, 2020 Date of Discharge: Dec 11, 2020 Admitting Diagnosis: Dehydration, LUISA, Hyperglycemia Final Diagnosis Problems Medical Problems: (1) Acute kidney injury Status: Acute (2) Hyperglycemia Status: Acute Brief Hospital Course Allergies Allergies Coded Allergies Type Severity Reaction Last Updated Verified No Known Drug Allergies 12/08/20 No Vital Signs Vital Signs Date Time Temp Pulse Resp B/P (MAP) Pulse Ox O2 Delivery O2 Flow Rate FiO2 12/10/20 15:00 98.1 103 18 101/60 (74) 97 Room Air 98.1 Lab Results Laboratory Tests Test 12/08/20 16:42 12/08/20 17:05 12/08/20 17:35 12/08/20 21:32 Glucose (Fingerstick) 302 mg/dL (70-99) 112 mg/dL (70-99) White Blood Count 12.1 x10^3/uL (4.0-11.0) Red Blood Count 5.18 x10^6/uL (4.30-5.70) Hemoglobin 15.1 g/dL (13.0-17.5) Hematocrit 42.6 % (39.0-53.0) Mean Corpuscular Volume 82 fL (79-100) Mean Corpuscular Hemoglobin 29 pg (25-35) Mean Corpuscular Hemoglobin Concent 35 g/dL (31-37) Red Cell Distribution Width 13.3 % (11.5-14.5) Platelet Count 376 x10^3/uL (140-400) Neutrophils (%) (Auto) 80 % (31-73) Lymphocytes (%) (Auto) 14 % (24-48) Monocytes (%) (Auto) 6 % (0-9) Eosinophils (%) (Auto) 0 % (0-3) Basophils (%) (Auto) 1 % (0-3) Neutrophils # (Auto) 9.7 x10^3/uL (1.8-7.7) Lymphocytes # (Auto) 1.7 x10^3/uL (1.0-4.8) Monocytes # (Auto) 0.7 x10^3/uL (0.0-1.1) Eosinophils # (Auto) 0.0 x10^3/uL (0.0-0.7) Basophils # (Auto) 0.1 x10^3/uL (0.0-0.2) Sodium Level 133 mmol/L (136-145) Potassium Level 3.4 mmol/L (3.5-5.1) Chloride Level 90 mmol/L (98-107) Carbon Dioxide Level 34 mmol/L (21-32) Anion Gap 9 (6-14) Blood Urea Nitrogen 42 mg/dL (8-26) Creatinine 1.6 mg/dL (0.7-1.3) Estimated GFR (Cockcroft-Gault) 59.1 BUN/Creatinine Ratio 26 (6-20) Glucose Level 246 mg/dL (70-99) Calcium Level 10.0 mg/dL (8.5-10.1) Total Bilirubin 0.6 mg/dL (0.2-1.0) Aspartate Amino Transf (AST/SGOT) 23 U/L (15-37) Alanine Aminotransferase (ALT/SGPT) 54 U/L (16-63) Alkaline Phosphatase 158 U/L (46-116) Total Protein 8.2 g/dL (6.4-8.2) Albumin 3.7 g/dL (3.4-5.0) Albumin/Globulin Ratio 0.8 (1.0-1.7) Test 12/09/20 03:50 12/09/20 07:10 12/09/20 07:22 12/09/20 12:27 Urine Collection Type Unknown Urine Color Diamond Urine Clarity Clear Urine pH 5.5 (<5.0-8.0) Urine Specific Tully >=1.030 (1.000-1.030) Urine Protein 100 mg/dL (NEG-TRACE) Urine Glucose (UA) 500 mg/dL (NEG) Urine Ketones (Stick) Trace mg/dL (NEG) Urine Blood Negative (NEG) Urine Nitrite Negative (NEG) Urine Bilirubin Small (NEG) Urine Urobilinogen Dipstick 0.2 mg/dL (0.2 mg/dL) Urine Leukocyte Esterase Trace (NEG) Urine RBC 0 /HPF (0-2) Urine WBC 1-4 /HPF (0-4) Urine Squamous Epithelial Cells Few /LPF Urine Bacteria Few /HPF (0-FEW) Urine Hyaline Casts Few /HPF Urine Mucus Mod /LPF Urine Opiates Screen Neg (NEG) Urine Methadone Screen Neg (NEG) Urine Barbiturates Neg (NEG) Urine Phencyclidine Screen Neg (NEG) Urine Amphetamine/Methamphetamine Neg (NEG) Urine Benzodiazepines Screen Neg (NEG) Urine Cocaine Screen Neg (NEG) Urine Cannabinoids Screen Neg (NEG) Urine Ethyl Alcohol Neg (NEG) White Blood Count 9.6 x10^3/uL (4.0-11.0) Red Blood Count 4.38 x10^6/uL (4.30-5.70) Hemoglobin 13.0 g/dL (13.0-17.5) Hematocrit 36.5 % (39.0-53.0) Mean Corpuscular Volume 83 fL (79-100) Mean Corpuscular Hemoglobin 30 pg (25-35) Mean Corpuscular Hemoglobin Concent 36 g/dL (31-37) Red Cell Distribution Width 13.1 % (11.5-14.5) Platelet Count 305 x10^3/uL (140-400) Neutrophils (%) (Auto) 68 % (31-73) Lymphocytes (%) (Auto) 24 % (24-48) Monocytes (%) (Auto) 6 % (0-9) Eosinophils (%) (Auto) 1 % (0-3) Basophils (%) (Auto) 0 % (0-3) Neutrophils # (Auto) 6.6 x10^3/uL (1.8-7.7) Lymphocytes # (Auto) 2.3 x10^3/uL (1.0-4.8) Monocytes # (Auto) 0.6 x10^3/uL (0.0-1.1) Eosinophils # (Auto) 0.1 x10^3/uL (0.0-0.7) Basophils # (Auto) 0.0 x10^3/uL (0.0-0.2) Sodium Level 137 mmol/L (136-145) Potassium Level 3.3 mmol/L (3.5-5.1) Chloride Level 95 mmol/L (98-107) Carbon Dioxide Level 37 mmol/L (21-32) Anion Gap 5 (6-14) Blood Urea Nitrogen 29 mg/dL (8-26) Creatinine 1.2 mg/dL (0.7-1.3) Estimated GFR (Cockcroft-Gault) 82.4 Glucose Level 69 mg/dL (70-99) Calcium Level 8.8 mg/dL (8.5-10.1) Lipase 56 U/L (73-393) Glucose (Fingerstick) 77 mg/dL (70-99) 157 mg/dL (70-99) Test 12/09/20 17:09 12/09/20 20:34 12/10/20 04:00 12/10/20 09:25 Glucose (Fingerstick) 171 mg/dL (70-99) 233 mg/dL (70-99) 153 mg/dL (70-99) Sodium Level 132 mmol/L (136-145) Potassium Level 2.9 mmol/L (3.5-5.1) Chloride Level 96 mmol/L (98-107) Carbon Dioxide Level 31 mmol/L (21-32) Anion Gap 5 (6-14) Blood Urea Nitrogen 13 mg/dL (8-26) Creatinine 0.8 mg/dL (0.7-1.3) Estimated GFR (Cockcroft-Gault) 131.6 Glucose Level 142 mg/dL (70-99) Calcium Level 8.6 mg/dL (8.5-10.1) Test 12/10/20 11:12 12/10/20 11:45 Glucose (Fingerstick) 166 mg/dL (70-99) Potassium Level 3.4 mmol/L (3.5-5.1) Laboratory Tests Test 12/09/20 17:09 12/09/20 20:34 12/10/20 04:00 12/10/20 09:25 Glucose (Fingerstick) 171 mg/dL (70-99) 233 mg/dL (70-99) 153 mg/dL (70-99) Sodium Level 132 mmol/L (136-145) Potassium Level 2.9 mmol/L (3.5-5.1) Chloride Level 96 mmol/L (98-107) Carbon Dioxide Level 31 mmol/L (21-32) Anion Gap 5 (6-14) Blood Urea Nitrogen 13 mg/dL (8-26) Creatinine 0.8 mg/dL (0.7-1.3) Estimated GFR (Cockcroft-Gault) 131.6 Glucose Level 142 mg/dL (70-99) Calcium Level 8.6 mg/dL (8.5-10.1) Test 12/10/20 11:12 12/10/20 11:45 Glucose (Fingerstick) 166 mg/dL (70-99) Potassium Level 3.4 mmol/L (3.5-5.1) Brief Hospital Course Patient is a 35-year-old male with past medical history DM2 who presents with concern of nausea, vomiting, and elevated blood sugar over the past 2 days. Patient is very uncooperative at the time of my evaluation, is much history is obtained from chart review. He was reportedly admitted to for similar concern recently, and just discharged 2 days ago. He did report to one staff member that " did not do anything for me". Labs on admission showed WBC 12.7, sodium 133, BUN 42, creatinine 1.6, CBG 246, alk phos 158. At one point security was almost contacted due to patient's aggression. In the ED he received Reglan and 1 L normal saline. Will admit patient for further medical management. Patient was admitted and given fluid resuscitation and glucose control. Patient did have nausea and vomiting on December 10 delaying his discharge. This resolved by the next day he was able to be discharged home on December 11. Discharge Information Condition at Discharge: Improved Disposition/Orders: D/C to Home No Active Prescriptions or Reported Meds Justicifation of Admission Dx: Justifications for Admission: Justification of Admission Dx: Yes CHF: Hemodynamic Instability Chronic Renal Failure: Intravenous Infusions NIEVES MG MD Dec 10, 2020 15:59
[2020-12-10 19:00] VITALS: BP 111/67
[2020-12-10] MEDS: INSULIN GLARGINE SYRINGE. SQ SCH (20:16)
[2020-12-10 22:43] VITALS: BP 125/76
[2020-12-11] MEDS: IV 1/2 NORMAL SALINE 1,000 ML IV SCH ×2 (01:55→10:00)
[2020-12-11 02:17] VITALS: BP 94/58
[2020-12-11 07:05] VITALS: BP 121/85
[2020-12-11] MEDS: POTASSIUM CHLORIDE 20 MEQ TABLET.ER. PO SCH (10:33)
[2020-12-11] MEDS: PANTOPRAZOLE 40 MG TABLET.DR. PO SCH (10:33)
[2020-12-11] MEDS: INSULIN LISPRO 300 UNITS/3 ML VIAL. SQ SCH ×2 (10:36→12:54)
--- NOTE | 2020-12-11 10:43 | NUR ---
Pt became irritated when giving medications, sat up quickly in his bed grabbed med cup and scratched this nurse on the hand causing welt Addendum: 12/11/20 at 1045 by FRANK TRAN LPN LPN Amended: Links added.
--- NOTE | 2020-12-11 11:05 | PDOC ---
[facility] PROGRESS NOTE Date of Service DOS: DATE: 12/10/20 TIME: 11:00 Chief Complaint Chief Complaint VTE Prophylaxis Ordered VTE Prophylaxis Devices: Yes VTE Pharmacological Prophylaxi: No Assessment/Plan LUISA due to vasomotor nephropathy Dehydration DM2 with hyperglycemia Leukocytosis HYPOKALEMIA METABOLIC contraction alkalosis Vomiting Plan: admit patient and provide IV fluids Basal/prandial insulin resume home medications discharge tomorrow if labs improved significantly FEN - Cardiac diet PPX - SCDs FULL CODE Dispo - OBS for above REPLETE K continue iv reglan 1/2 NS AT 125 CC / HR remain in hospital for IV FLUID SUPPORT ACUTE ABD SERIES LIPASE D/W RN Justifications for Admission Justifications for Admission Other Justification History of Present Illness History of Present Illness Identification/Chief Complaint Chief Complaint Hyperglycemia Source Source: Chart review, Patient History of Present Illness History of Present Illness Patient is a 35-year-old male with past medical history DM2 who presents with concern of nausea, vomiting, and elevated blood sugar over the past 2 days. Patient is very uncooperative at the time of my evaluation, is much history is obtained from chart review. He was reportedly admitted to for similar concern recently, and just discharged 2 days ago. He did report to one staff member that " did not do anything for me". Labs on admission showed WBC 12.7, sodium 133, BUN 42, creatinine 1.6, CBG 246, alk phos 158. At one point security was almost contacted due to patient's aggression. In the ED he received Reglan and 1 L normal saline. Will admit patient for further medical management. 12/10 Patient seen and examined at bedside. Is reporting a fair bit of nausea and vomiting will symptomatically treat. Otherwise is no complaints Past Medical History Past Medical History DM2 Past Surgical History Past Surgical History Tracheostomy, abdominal surgery Family History Family History DM2 Social History Smoke: No ALCOHOL: none Drugs: None Current Medications Current Medications Current Medications Sodium Chloride 1,000 ml @ 1,000 mls/hr 1X ONCE IV ; Start 12/08/20 at 16:45; Stop 12/08/20 at 19:35; Status DC Metoclopramide HCl (Reglan Vial) 10 mg 1X ONCE IVP ; Start 12/08/20 at 16:45; Stop 12/08/20 at 19:35; Status DC Allergies Allergies: Coded Allergies: No Known Drug Allergies (Unverified , 12/08/20) ROS Review of System He admits to abdominal pain by pointing to his stomach. Further review of history reviewed with patient but unable to obtain due to patient noncompliance. Vitals/I&O Vitals/I&O: Vital Signs Date Time Temp Pulse Resp B/P (MAP) Pulse Ox O2 Delivery O2 Flow Rate FiO2 12/11/20 07:05 97.6 99 20 121/85 (97) 96 Room Air 97.6 I & O 12/10/20 12/10/20 12/11/20 15:00 23:00 07:00 Intake Total 650 ml 3050 ml Output Total 400 ml Balance 250 ml 3050 ml Physical Exam Physical Exam: Physical Exam Physical Exam General: Alert, uncooperative, no acute distress HEENT: PERRLA, EOMI Lungs: Clear to auscultation, Normal air movement Heart: RRR, no murmurs Cardiovascular: S1, S2 Abdomen: Normal bowel sounds, Soft, No tenderness Extremities: No clubbing, No cyanosis Skin: Multiple superficial abrasions to right lower extremity. No rashes, No significant lesion Neuro: Normal tone, Sensation intact Psych/Mental Status: Blunted affect General: Alert, Oriented X3, Cooperative, No acute distress Heart: Regular rate Lungs: Clear Abdomen: Normal bowel sounds, Soft, No tenderness Extremities: No clubbing, No cyanosis, No edema Labs Labs: Laboratory Tests Test 12/10/20 11:12 12/10/20 11:45 12/10/20 16:52 12/10/20 19:19 Glucose (Fingerstick) 166 mg/dL (70-99) 287 mg/dL (70-99) 252 mg/dL (70-99) Potassium Level 3.4 mmol/L (3.5-5.1) Test 12/11/20 07:46 Glucose (Fingerstick) 192 mg/dL (70-99) Assessment and Plan Assessmemt and Plan Problems Medical Problems: (1) Acute kidney injury Status: Acute (2) Hyperglycemia Status: Acute Comment Review of Relevant I have reviewed the following items jo (where applicable) has been applied. Justifications for Admission Other Justification NIEVES MG MD Dec 11, 2020 11:05
[2020-12-11 11:14] VITALS: BP 152/97
== END 2020-12-11 13:15 | disposition home or self-care (01) ==
LOC: ER 15:29 → 4 NORTH 20:29 → INTOOBSV 20:29
PROVIDERS: ADMIT Family Medicine; ATTEND Family Medicine
DX: N17.0 Acute kidney failure with tubular necrosis (principal); E87.6 Hypokalemia; E86.0 Dehydration; D72.829 Elevated white blood cell count, unspecified; E11.22 Type 2 diabetes mellitus with diabetic chronic kidney disease; N18.9 Chronic kidney disease, unspecified; E11.65 Type 2 diabetes mellitus with hyperglycemia; E87.3 Alkalosis; I50.9 Heart failure, unspecified; Z79.899 Other long term (current) drug therapy
CPT/HCPCS: 36415; 74022; 80048; 80053; 80307; 81001; 82962; 83690; 84132; 85025; 87086; 96361; 96365; 96366; 96372; 96375; 96376; 99284; C9113; G0378; J0780; J1815; J2765; J3480; J3490; J7030; 96374; G0379; 99285-25